=== PATIENT | female | born 1940 | race Caucasian/White ===

== ENCOUNTER 2019-04-13 05:10 | Emergency (ER) | payer MEDICARE, MEDICAID ==
[2019-04-13] MEDS ORDERED: DIPHENHYDRAMINE HCL 25 MG CAPSULE PO ONE (05:29)
--- NOTE | 2019-04-13 05:31 | Emergency Department Record ---
History of Present Illness - General Chief complaint: Bite Insect/other Stated complaint: BEE STING Time Seen by Provider: 04/13/19 05:23 Source: Patient, Family (son) Mode of Arrival: Ambulatory Limitations: No limitations - History of Present Illness Initial comments: Pt to the ED with son from home where she was stung twice by a wasp. Once to the right thumb and to the right thigh. No redness, no swelling, no FELIPA. 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 Onset/Timin -: Hour(s) Hx Tetanus Toxoid Vaccination: Yes Year of Tetanus Vaccination: 2012 Location: R hand, RLE Severity scale (1-10): 6 Quality: Other Consistency: Intermittent Improves with: None Worsens with: None Context: None Associated symptoms: Denies other symptoms Treatments Prior to Arrival: None - Related Data Allergies Allergy/AdvReac Type Severity Reaction Status Date / Time hydrocodone bitartrate Allergy Intermediate RASH Verified 03/16/16 07:31 [From VICODIN] acetaminophen Allergy Unknown RASH Verified 03/16/16 07:31 [From TYLENOL-CODEINE #3] allopurinol [ALLOPURINOL] Allergy Unknown PT UNSURE Verified 03/16/16 07:31 OF REACTION cetirizine HCl [From ZYRTEC] Allergy Unknown PT UNSURE Verified 03/16/16 07:31 OF REACTION clindamycin HCl Allergy Unknown PT UNSURE Verified 03/16/16 07:31 [From CLEOCIN] OF REACTION clindamycin palmitate HCl Allergy Unknown PT UNSURE Verified 03/16/16 07:31 [From CLEOCIN] OF REACTION clindamycin phosphate Allergy Unknown PT UNSURE Verified 03/16/16 07:31 [From CLEOCIN] OF REACTION codeine phosphate Allergy Unknown RASH Verified 03/16/16 07:31 [From TYLENOL-CODEINE #3] flurbiprofen [From ANSAID] Allergy Unknown PT UNSURE Verified 03/16/16 07:31 OF REACTION hydrochlorothiazide Allergy Unknown PT UNSURE Verified 03/16/16 07:31 [From DYAZIDE] OF REACTION methylprednisolone Allergy Unknown PT UNSURE Verified 03/16/16 07:31 [METHYLPREDNISOLONE] OF REACTION oxycodone [OXYCODONE] Allergy Unknown PT UNSURE Verified 03/16/16 07:31 OF REACTION penicillin V potassium Allergy Unknown PT UNSURE Verified 03/16/16 07:31 [From PEN-VEE K] OF REACTION quinapril HCl [From ACCUPRIL] Allergy Unknown PT UNSURE Verified 03/16/16 07:31 OF REACTION salicylates [SALICYLATE] Allergy Unknown PT UNSURE Verified 03/16/16 07:31 OF REACTION triamterene [From DYAZIDE] Allergy Unknown PT UNSURE Verified 03/16/16 07:31 OF REACTION valsartan [From DIOVAN] Allergy Unknown PT UNSURE Verified 03/16/16 07:31 OF REACTION Travel Screening - Travel/Exposure Within Last 30 Days Have you traveled within the last 30 days?: No - Travel/Exposure Within Last Year Have you traveled outside the [place] in the last year?: No - Additonal Travel Details Have you been exposed to anyone with a communicable illness?: No - Travel Symptoms Symptom Screening: None Review of Systems Constitutional: Denies: Chills, Fever Eyes: Denies: Photophobia ENT: Denies: Congestion Respiratory: Denies: Cough Cardiovascular: Denies: Arrhythmia Endocrine: Denies: Fatigue Gastrointestinal: Denies: Abdominal pain Skin: Denies: Bruising Neurological: Denies: Headache Psychiatric: Denies: Anxiety Past Medical History - SOCIAL HISTORY Smoking Status: Former smoker Alcohol Use: None Drug Use: None - RESPIRATORY Hx Respiratory Disorders: Yes Hx Dyspnea: Yes - CARDIOVASCULAR Hx Cardio Disorders: Yes Hx Cardiac Cath: Yes Hx Chest Pain: Yes Comment:: Angina - NEURO Hx Neuro Disorders: Yes Hx Headaches: Yes - GI Hx GI Disorders: Yes Hx Hiatal Hernia: Yes Comment:: states always gains and loses weight - Hx Genitourinary Disorders: Yes Hx Renal Disease: Yes - ENDOCRINE Hx Endocrine Disorders: Yes Hx Diabetes: Yes - MUSCULOSKELETAL Hx Musculoskeletal Disorders: Yes Hx Arthritis: Yes - PSYCH Hx Psych Problems: Yes Hx Anxiety: Yes - HEMATOLOGY/ONCOLOGY Hx Hematology/Oncology Disorders: Yes Hx Bruising: Yes (blood thinner) 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 *Cancer Comment: skin cancer Hx Diabetes: Father Hx Kidney Disease: Children Physical Exam - General General Appearance: Alert, Oriented x3, Cooperative, No acute distress - Head Head exam: Atraumatic - Eye Eye exam: PERRL, EOMI - ENT ENT exam: Mucous membranes moist Nasal Exam: Normal inspection Mouth exam: Normal external inspection - Respiratory Respiratory exam: Normal lung sounds bilaterally. negative: Rhonchi, Stridor, Wheezes - Cardiovascular Cardiovascular Exam: Regular rate, Normal rhythm - GI/Abdominal GI/Abdominal exam: Soft, Normal bowel sounds - Extremities Extremities exam: Normal inspection. negative: Tenderness - Neurological Neurological exam: Alert, Normal gait, Oriented X3 - Psychiatric Psychiatric exam: Normal affect, Normal mood - Skin Skin exam: Other (exam of the right thumba nd thigh without evidence of an redness, swelling, or local reaction. ) Course Vital Signs 04/13/19 05:16 Temperature 98 F Pulse Rate [ 56 L Pulse Ox Probe] Respiratory 24 Rate Blood Pressure 178/76 [Left Arm] Pulse Ox 93 L - Reevaluation(s) Reevaluation #1: 04/13/19 05:36 Seen and examined. No evidence of adverse reaction to sting. Benadryl 25 mg given po. Stated allergy is "a risk for falling". Disposition Disposition: Discharge Clinical Impression: Wasp sting Qualifiers: Encounter type: initial encounter Disposition: Home, Self-Care Condition: (1) Good Instructions: Insect Bite or Sting (ED) Additional Instructions: ice pack to area. Return if any redness or swelling or difficulty breathing. Treat home for wasps. Forms: Patient Portal Access Time of Disposition: 05:31 Quality - Quality Measures Quality Measures: N/A - Blood Pressure Screening Does Patient Have Any of the Following: No Blood Pressure Classification: Hypertensive Reading Systolic Measurement: 178 Diastolic Measurement: 76 Screening for High Blood Pressure: Patient Exclusion, Hx of HTN [[id number]]
== END 2019-04-13 05:41 | disposition home or self-care (01) ==
LOC: ER 05:10
DX: T63.461A Toxic effect of venom of wasps, accidental (unintentional), initial encounter (principal); I10 Essential (primary) hypertension; E11.9 Type 2 diabetes mellitus without complications; Z87.891 Personal history of nicotine dependence
CPT/HCPCS: 99282